=== PATIENT | female | born 1930 | race Two or more races ===

== ENCOUNTER 2016-10-30 09:33 | Emergency (ER) | payer MEDICAID ==
[~2016-10-30] VITALS: Ht 137.2 cm; Wt 68.0 kg
[2016-10-30 10:50] VITALS: BP 125/48
== END 2016-10-30 11:26 | disposition home or self-care (01) ==
LOC: ER 09:33
DX: E11.9 Type 2 diabetes mellitus without complications (principal); E78.5 Hyperlipidemia, unspecified; I10 Essential (primary) hypertension; H40.9 Unspecified glaucoma; H54.40 Blindness, one eye, unspecified eye; Z76.0 Encounter for issue of repeat prescription

== ENCOUNTER 2018-02-23 23:06 | Emergency (ER) | payer MEDICAID, OTHER ==
[2018-02-24] MEDS ORDERED: HYDROmorphone HCL 2 MG/ML VL IV ONE (00:30)
[2018-02-24] MEDS ORDERED: ONDANSETRON HCL 4 MG/2 ML VIAL IV ONE (00:30)
[2018-02-24] MEDS ORDERED: PROPOFOL 100 ML IV ONE (00:39)
[2018-02-24] MEDS: PROPOFOL 10 MG/ML 20 ML IV ONE ×2 (00:42→01:38)
[2018-02-24 00:43] VITALS: BP 148/71
[2018-02-24] MEDS ORDERED: PROPOFOL 10 MG/ML 20 ML IV ONE (01:30)
== END 2018-02-24 03:31 | disposition home or self-care (01) ==
LOC: EDBD 23:06 → ER 23:06
DX: S52.571A Other intraarticular fracture of lower end of right radius, initial encounter for closed fracture (principal); S52.601A Unspecified fracture of lower end of right ulna, initial encounter for closed fracture; E11.9 Type 2 diabetes mellitus without complications; I10 Essential (primary) hypertension; W18.39XA Other fall on same level, initial encounter; Y93.89 Activity, other specified; Y99.8 Other external cause status; Y92.89 Other specified places as the place of occurrence of the external cause
CPT/HCPCS: 25605; 73100; 93005; 96374; 96375; 99152; 99285; J1170; J2405; J2704

== ENCOUNTER 2018-03-14 01:00 | Observation (INO) | payer OTHER ==
[~2018-03-14] VITALS: Ht 147.3 cm; Wt 49.9 kg
[2018-03-14] MEDS ORDERED: TETANUS-DIPTH-ACEL PERTUSSIS 0.5ML SYRG IM ONE (03:00)
[2018-03-14] MEDS ORDERED: cefTRIAXone 1GM/10ml IVPUSH 10 ML IV ONE (03:00)
[2018-03-14 07:29] VITALS: BP 106/45
== END 2018-03-14 08:43 | disposition home or self-care (01) | DRG 384 ==
LOC: ER 01:00 → EDBD 01:00 → OVERFLOW 01:01 → ER 08:43
PROVIDERS: ADMIT Emergency Medicine; ATTEND Emergency Medicine
DX: S01.01XA Laceration without foreign body of scalp, initial encounter (principal); E11.9 Type 2 diabetes mellitus without complications; I10 Essential (primary) hypertension; W18.09XA Striking against other object with subsequent fall, initial encounter; Y93.89 Activity, other specified; Y92.008 Other place in unspecified non-institutional (private) residence as the place of occurrence of the external cause; Y99.8 Other external cause status; Z23 Encounter for immunization
CPT/HCPCS: 12002; 36415; 70450; 82962; 90471; 90715; 96374; 99285; G0378; J0696

== ENCOUNTER 2018-03-25 17:29 | Emergency (ER) | payer OTHER ==
[~2018-03-25] VITALS: Ht 137.2 cm; Wt 67.6 kg
[2018-03-25 17:44] VITALS: BP 151/62
[2018-03-25 18:55] LABS: Basophils # (auto) 0.1 uL; Basophils % (auto) 0.5 % (0.0-2.0); Eosinophils # (auto) 0.2 uL; Eosinophils % (auto) 1.5 % (0.0-7.0); Hematocrit 33.4 % (36.0-46.0); Hemoglobin 11.5 g/dL (12.2-16.2); Lymphocytes # (auto) 2.9 uL; Lymphocytes % (auto) 22.8 % (10.0-50.0); Mean Corpuscular Hemoglobin 29.9 pg (28.0-32.0); Mean Corpuscular Hgb Conc. 34.4 g/dL (32.0-36.0); Mean Corpuscular Volume 86.9 fL (80.0-100.0); Monocytes # (auto) 1.2 uL; Monocytes % (auto) 9.8 % (0.0-12.0); Neutrophils # (auto) 8.3 uL; Neutrophils % (auto) 65.4 % (37.0-80.0); Platelet Count (auto) 373 10^3/uL (140-450); Red Blood Cells 3.84 10^6/uL (4.0-5.20); Red Cell Distribution Width 13.8 % (11.8-14.3); White Blood Cell 12.7 10^3/uL (4.4-10.8)
[2018-03-25 19:05] LABS: Prothrombin Time 10.7 sec (9.27-12.13)
[2018-03-25 19:16] LABS: Alanine Aminotransferase 19 U/L (13-56); Alkaline Phosphatase 128 U/L (45-117); Anion Gap 15 (5-15); Aspartate Aminotransferase 13 U/L (15-37); BUN/Creatinine Ratio 12.1; Bilirubin, Total 0.4 mg/dL (0.2-1.0); Blood Urea Nitrogen 11 mg/dL (7-18); Calcium 8.8 mg/dL (8.5-10.1); Carbon Dioxide 24 mmol/L (21-32); Chloride 85 mmol/L (98-107); GFR African American 75 mL/min; GFR Non-African American 62 mL/min; Glucose 135 mg/dL (74-106); Potassium 3.4 mmol/L (3.5-5.1); Sodium 124 mmol/L (136-145); Total Protein 8.1 g/dL (6.4-8.2)
== END 2018-03-25 20:08 | disposition left against medical advice (07) ==
LOC: ER 17:42
DX: R42 Dizziness and giddiness (principal); Z53.21 Procedure and treatment not carried out due to patient leaving prior to being seen by health care provider
CPT/HCPCS: 36415; 70450; 80053; 84484; 85025; 85610; 93005

== ENCOUNTER 2018-03-26 07:01 | Emergency (ER) | payer OTHER ==
[~2018-03-26] VITALS: Ht 137.2 cm; Wt 67.6 kg
[2018-03-26 07:27] VITALS: BP 113/36
== END 2018-03-26 09:34 | disposition left against medical advice (07) ==
LOC: ER 07:01
DX: S01.01XD Laceration without foreign body of scalp, subsequent encounter (principal); Z53.21 Procedure and treatment not carried out due to patient leaving prior to being seen by health care provider
CPT/HCPCS: 93005